=== PATIENT | female | born 1975 | race Caucasian/White ===

== ENCOUNTER 2017-03-24 10:51 | Emergency (ER) | payer SELFPAY ==
--- NOTE | 2017-04-01 18:05 | ER ---
ADMIT: 03/24/2017 RM/LOC: ER [facility] MR#: [id number] [id number] [address] [place] [address] Emergency Room Report SEX: F AGE: 42 : 1975 DATE: 03/24/2017 CHIEF COMPLAINT: Chest pain. HISTORY OF PRESENT ILLNESS: A 42-year-old female, who presents with 2 hours duration of chest pain prior to arrival. States she has been drinking nonstop for the past 4 days, wonders if this could be related. States the pain is still present. She states she regularly checks her blood pressure every morning and noticed it was high this morning. States her body went numb and tingly, then the chest pain started. She complains of her eyes hurting and her lips feeling numb. She states she is very shaky and dizzy. She rates her chest pain as a 5/10. Describes it as aching. There was no radiation. States it is associated with some nausea, sweating, and dizziness. No shortness of breath, palpitations, or cough. Not worse with exertion. Relieved by nothing at this point. No past cardiac history. She does have hypertension. Family history of cardiac problems include grandmother who had heart attack in her 30s or 40s per her report. She does smoke a half pack per day. COURSE IN THE EMERGENCY ROOM: The patient was seen and examined. GENERAL: Afebrile, mildly distressed and she is anxious. HEENT: Eyes are normal. Pharynx non erythematous. NECK: Soft and supple. RESPIRATORY: No respiratory distress. Lung sounds equal bilaterally. No wheezes, rhonchi, or rales. HEART: Regular rate and rhythm. No murmurs, gallops, or rubs. ABDOMEN: Soft and nontender. SKIN: Warm and dry. EXTREMITIES: Nontender. No pedal edema. NEURO: She is quite anxious. LABORATORY DATA: I did draw labs on her. White count 6.3, hemoglobin 12.5, hematocrit 37.4, and platelets 274. Chemistry; sodium 140, potassium 3.7, glucose 106, BUN 6, creatinine 0.5, troponin less than 0.015. EKG shows normal sinus rhythm, rate of [address]-T or Q wave abnormalities. I did give ADMIT: 03/24/2017 RM/LOC: [facility] MR#: [id number] [id number] [address] [place] [address] Emergency Room Report SEX: F AGE: 42 : 1975 her 0.5 mg of Ativan as well as 15 mg of Toradol, 4 mg of Zofran as well as a liter of normal saline. She states she is feeling mildly improved, ready for discharge. IMPRESSION: 1. Atypical chest pain. 2. Hypertension. DISPOSITION: Patient was discharged. Continue home medications. Tylenol or Motrin as needed for pain. Return with worsening signs and follow up with Dr. Rudd. She should return home and rest. Questions sought and answered to best of my ability and the patient's satisfaction. Discharged in stable condition. JU Sanchez / Chidi Ravi MD / rufina JOB #: [id number] CC: Chidi Ravi MD, Attending Physician
== END 2017-03-24 12:43 | disposition home or self-care (01) ==
LOC: ER 10:51
DX: R07.89 Other chest pain (principal); F17.210 Nicotine dependence, cigarettes, uncomplicated; I10 Essential (primary) hypertension; Z90.13 Acquired absence of bilateral breasts and nipples; Z90.710 Acquired absence of both cervix and uterus; Z98.890 Other specified postprocedural states; Z79.899 Other long term (current) drug therapy; Z88.8 Allergy status to other drugs, medicaments and biological substances